=== PATIENT | female | born 1965 | race Caucasian/White ===

== ENCOUNTER → 2019-11-03 11:36 | Outpatient (CLI) | payer OTHER, SELFPAY ==
--- NOTE | 2019-11-03 11:44 | DI.MRI.S_ITS ---
PROCEDURE: MR LUMBAR SPINE WO/W CON INDICATIONS: Surgical changes of posterior fusion L4-L5;back pa TECHNIQUE: Noncontrast sagittal T1 spin echo and T2 fast spin echo, sagittal STIR, axial T1 and T2 fast spin echo through the lumbar spine. In cases with scoliosis, additional coronal T2 fast spin echo may be performed. After the administration of contrast, sagittal and axial T1 spin echo with fat saturation through the lumbar spine. COMPARISON: None. FINDINGS: Image quality: Excellent. Alignment and curvature: There is normal bony alignment. Bones: Postsurgical changes compatible with L4-L5 PLIF. Marrow is of normal overall signal. No acute vertebral body compression fractures. Small Schmorl's nodes noted in the superior and inferior endplates of the L1 and L2 vertebral bodies as well as the superior endplate of the L3 vertebral body. No suspicious marrow enhancement. Spinal cord: Conus medullaris terminates at the L1 level. Visualized spinal cord demonstrates normal signal, without suspicious enhancement. Paraspinous soft tissues: No paravertebral masses or abnormal enhancement. L1-L2: Normal appearance. L2-L3: Slight loss of disc signal. Minimal, diffuse disc bulge. No central stenosis. Mild bilateral neural foraminal narrowing. No neural compression. L3-L4: Loss of the signal. Minimal, diffuse disc bulge. No central stenosis. Mild bilateral neural foraminal narrowing. No neural compression. L4-L5: Status post fusion. No central stenosis. No neural foraminal narrowing. No neural compression. L5-S1: Slight loss of the signal. Mild bilateral facet hypertrophy. No central stenosis. Mild left neural foraminal narrowing. No neural compression. IMPRESSION: 1. Status post L4-L5 PLIF. 2. Multilevel degenerative disc disease. 3. L5-S1 facet arthropathy. 4. No central stenosis. 5. Mild bilateral L2-L3 and L3-L4 neural foraminal narrowing. Mild left L5-S1 neural foraminal narrowing. 6. No neural compression. 7. No suspicious postcontrast enhancement. Dictated by: Lisa Britton MD, PhD on 11/03/2019 at 14:06 Approved by: Lisa Britton MD, PhD on 11/03/2019 at 14:23
== END ==
PROVIDERS: PCP Nurse Practitioner Acute Care; Referring Provider Nurse Practitioner Acute Care; Visit Provider Nurse Practitioner Acute Care
DX: M54.5 Low back pain (principal); M51.36 Other intervertebral disc degeneration, lumbar region; M48.061 Spinal stenosis, lumbar region without neurogenic claudication; M47.817 Spondylosis without myelopathy or radiculopathy, lumbosacral region; M48.07 Spinal stenosis, lumbosacral region; Z98.1 Arthrodesis status
CPT/HCPCS: 72158

== ENCOUNTER → 2023-09-18 12:58 | Outpatient (CLI) | payer OTHER, SELFPAY ==
--- NOTE | 2023-09-18 13:01 | DI.RAD.S_ITS ---
PROCEDURE: [place] SHOULDER INJECTION MR/CT LT INDICATIONS: Superior glenoid labrum lesion of left shoulder COMPARISON: None. TECHNIQUE: The indications, alternatives, benefits, risks, and complications of the procedure were explained to the patient. Written informed consent was obtained and placed in the chart. The shoulder was examined fluoroscopically and a site for needle placement chosen for entry into the glenohumeral joint from an anterior approach. The skin was prepped and draped in a sterile fashion, and 1% lidocaine infiltrated from skin down to joint capsule. A spinal needle was inserted into the glenohumeral joint, and a small amount of iodinated contrast media injected to confirm intra-articular placement of the needle tip. This was followed by approximately 12 mL dilute solution of a gadolinium containing MR contrast agent. The needle was removed and a dressing was applied. The patient was given postprocedural instructions and sent to the MR suite for MR imaging. Fluoroscopic time: 0.3 minutes. Three images were saved. FINDINGS: A single fluoroscopic spot image demonstrates intra-articular location of injected iodinated contrast. IMPRESSION: Successful fluoroscopically guided administration of dilute Gadolinium solution into the shoulder joint for MR arthrogram. Dictated by: Mango Goff M.D. on 09/19/2023 at 13:25 Approved by: Mango Goff M.D. on 09/19/2023 at 13:26
[2023-09-18] MEDS: LIDOCAINE 1% 20 ML INJ (13:40)
[2023-09-18] MEDS: SODIUM CHLORIDE 0.9 % 20 ML VIAL IV (13:40)
--- NOTE | 2023-09-18 14:15 | DI.MRI.S_ITS ---
PROCEDURE: MR SHOULDER LT W CON INDICATIONS: Superior glenoid labrum lesion of left shoulder TECHNIQUE: After the administration of 12 mL of dilute intra-articular Gadolinium contrast, oblique coronal T1 and T2 spin echo with fat saturation, oblique sagittal T1 spin echo with and without fat saturation, oblique sagittal T2 fast spin echo with fat saturation, axial T1 spin echo with fat saturation through the shoulder. COMPARISON: [facility], , [place] SHOULDER INJECTION MR/CT LT, 09/18/2023, 13:40. FINDINGS: Image quality: Excellent. Rotator cuff: Mild supraspinatus tendinosis. The infraspinatus, teres minor, and subscapularis tendons are intact. No significant rotator cuff tendon tearing. The rotator cuff musculature is normal in bulk. Contrast material is seen tracking medially along the subscapularis muscle related to extravasation during the arthrogram injection. Bones and bursae: No acute trabecular bone injury. Minimal degenerative spurring is seen in the glenoid rim. Mild to moderate degenerative changes are seen at the acromioclavicular joint. There is trace [id number] fluid in the subacromial/subdeltoid bursa that is suspected to be related to extravasation during the arthrogram injection rather than communication with the glenohumeral joint space. No filling defect is seen in the glenohumeral joint. Capsule and soft tissues: Mild partial tearing of the superior to posterior superior labrum. The labrum otherwise appears to be intact. There is mild proximal biceps long head tendinosis. Glenohumeral ligaments are intact. IMPRESSION: 1. Partial tearing of the superior to posterior superior labrum. 2. Mild proximal biceps long head tendinosis. 3. Mild supraspinatus tendinosis. No significant rotator cuff tendon tearing. 4. [id number] acromioclavicular joint osteoarthrosis. Approved by: Teodoro Ortega M.D. on 09/18/2023 at 18:20
== END ==
DX: S43.432A Superior glenoid labrum lesion of left shoulder, initial encounter (principal); M19.012 Primary osteoarthritis, left shoulder; X58.XXXA Exposure to other specified factors, initial encounter
CPT/HCPCS: 23350; 73222